=== PATIENT | male | born 1990 | race Native Hawaiian/Other Pacific Islander ===

== ENCOUNTER 2018-02-10 15:51 | Outpatient (CLI) | payer OTHER ==
[~2018-02-10] VITALS: Ht 182.9 cm; Wt 84.8 kg
[2018-02-10 16:14] VITALS: BP 133/84
[2018-02-10 16:17] LABS: BASOPHILS % (AUTO) 0 % (0-10); EOSINOPHILS # (AUTO) 0.1 10^3/uL (0.0-0.3); EOSINOPHILS % (AUTO) 1 % (0-10); HEMATOCRIT 42 % (40-54); HEMOGLOBIN 15.4 G/DL (13.3-17.7); LYMPHOCYTES # (AUTO) 1.3 X 10^3 (1.0-4.0); LYMPHOCYTES % (AUTO) 20 % (12-44); MEAN CORPUSCULAR HEMOGLOBIN 31 PG (25-34); MEAN CORPUSCULAR HGB CONC 36 G/DL (32-36); MEAN CORPUSCULAR VOLUME 86 FL (80-99); MEAN PLATELET VOLUME 10.8 FL (7.4-10.4); MONOCYTES # (AUTO) 0.5 X 10^3 (0.0-1.0); MONOCYTES % (AUTO) 8 % (0-12); NEUTROPHILS # (AUTO) 4.7 X 10^3 (1.8-7.8); NEUTROPHILS % (AUTO) 71 % (42-75); PLATELET COUNT 196 10^3/uL (130-400); RED BLOOD COUNT 4.91 10^6/uL (4.35-5.85); RED CELL DISTRIBUTION WIDTH 13.2 % (10.0-14.5); WHITE BLOOD COUNT 6.7 10^3/uL (4.3-11.0)
[2018-02-10 16:36] LABS: ALANINE AMINOTRANSFERASE 20 U/L (0-55); ALBUMIN 4.3 GM/DL (3.2-4.5); ALKALINE PHOSPHATASE 65 U/L (40-136); BILIRUBIN,DIRECT 0.3 MG/DL (0.0-0.3); BILIRUBIN,INDIRECT 0.6 MG/DL; BILIRUBIN,TOTAL 0.9 MG/DL (0.1-1.0); BUN/CREATININE RATIO 10; CALCIUM 9.3 MG/DL (8.5-10.1); CARBON DIOXIDE 24 MMOL/L (21-32); CHLORIDE 106 MMOL/L (98-107); CHOLESTEROL 169 MG/DL (< 200); CREATININE SERUM 0.89 MG/DL (0.60-1.30); GFR ESTIMATED > 60; GLUCOSE 119 MG/DL (70-105); HDL CHOLESTEROL 51 MG/DL (40-60); POTASSIUM 3.8 MMOL/L (3.6-5.0); SODIUM 138 MMOL/L (135-145); TOTAL PROTEIN 7.1 GM/DL (6.4-8.2); TRIGLYCERIDES 91 MG/DL (<150); VLDL CHOLESTEROL 18 MG/DL (5-40)
[2018-02-10 16:56] LABS: FREE T4 (FREE THYROXINE) 1.21 NG/DL (0.70-1.48)
== END 2018-02-10 16:15 | disposition home or self-care (01) ==
LOC: PREOP 15:51
PROVIDERS: ATTEND Urology
DX: Z01.812 Encounter for preprocedural laboratory examination (principal); Z11.2 Encounter for screening for other bacterial diseases; I86.1 Scrotal varices
CPT/HCPCS: 36415; 80048; 80061; 80076; 84402; 84403; 84439; 84443; 85025; 87081

== ENCOUNTER 2018-03-08 07:20 | Day surgery (SDC) | payer OTHER ==
[~2018-03-08] VITALS: Ht 182.9 cm; Wt 84.8 kg
--- NOTE | 2018-03-08 07:16 | Progress Note-Pre Operative ---
Pre-Operative Progress Note H&P Reviewed The H&P was reviewed, patient examined and no changes noted. Date Seen by Provider: Mar 08, 2018 Time Seen by Provider: 08:38 Date H&P Reviewed: Mar 08, 2018 Time H&P Reviewed: 08:38 Pre-Operative Diagnosis: GRADE 2 LT VARICOCELE KALYN BAXTER MD Mar 08, 2018 7:16 am
[2018-03-08 07:18] VITALS: BP 128/89
[2018-03-08] MEDS ORDERED: LACTATED RINGERS 1,000 ML IV PRN (07:28)
[2018-03-08] MEDS ORDERED: ceFAZolin INJECTION 1,000 MG in NS (IVPB) 50 ML IV ONE (07:30)
[2018-03-08] MEDS ORDERED: LIDOCAINE PF 2% 5 ML (XYLOCAINE) VIAL ONE (08:21)
[2018-03-08] MEDS ORDERED: fentaNYL INJECTION 100 MCG/2 ML AMP ONE ×2 (08:21→09:12)
[2018-03-08] MEDS ORDERED: proPOfol 200 MG/20 ML (DIPRIVAN) VIAL IV ONE (08:21)
[2018-03-08] MEDS ORDERED: MIDAZOLAM 2 MG/2 ML (VERSED) VIAL ONE (08:21)
[2018-03-08] MEDS ORDERED: DEXAMETHASONE 10 MG/ML (DECADRON) 1 ML VIAL ONE (08:21)
[2018-03-08] MEDS ORDERED: ONDANSETRON 4 MG/2 ML (SDV) Z0FRAN ONE (08:21)
[2018-03-08] MEDS ORDERED: SEVOFLURANE (ULTANE) 15 ML INHAL SOLN ONE ×3 (08:21→09:45)
[2018-03-08] MEDS ORDERED: GLYCOPYRROLATE 0.2 MG/ML (ROBINUL) 2 ML VIAL ONE (09:23)
--- NOTE | 2018-03-08 09:33 | Progress Note-Post Operative ---
Post-Operative Progess Note Surgeon (s)/Internist (s) Surgeon KALYN BAXTER MD Internist: LAURYN Pre-Operative Diagnosis GRADE 2 LT VARICOCELE Post-Operative Diagnosis SAME Procedure & Operative Findings Date of Procedure 03/08/18 Procedure Performed/Findings LT SPERMATIC VEIN LIGATION Anesthesia Type GENERAL Estimated Blood Loss Estimated blood loss (mL): NEGLIGIBLE Specimens/Packing Specimens Removed LT SPERMATIC VEINS Packing: NONE KALYN BAXTER MD Mar 08, 2018 9:33 am
--- NOTE | 2018-03-08 09:35 | Discharge Inst-Urology ---
Discharge Inst-Urology Discharge Medications New, Converted, or Re-newed RX: RX on Chart Patient Instructions/Follow Up Plan Please make appointment to been seen in office in 2 weeks. Rest till then Ice to Lt groin in RR and at home for 6hrs and then PRN Tomorrow may shower, no bath Keep bowels soft and moving Increase oral fluids for 48 hours and then as needed. Diet and Activity as tolerated. If questions or concerns contact your physician Or seek help at emergency department. KALYN BAXTER MD Mar 08, 2018 9:35 am
[2018-03-08] MEDS ORDERED: KETOROLAC 30 MG/ML VIAL ONE (09:46)
[2018-03-08] MEDS ORDERED: HYDROmorphone 2 MG/ML VIAL (DILAUDID) ONE (09:46)
[2018-03-08] MEDS ORDERED: KETOROLAC 30 MG/ML VIAL IVP ONE (10:00)
[2018-03-08] MEDS ORDERED: fentaNYL INJECTION 100 MCG/2 ML AMP IVP ONE (10:00)
[2018-03-08] MEDS ORDERED: MEPERIDINE (DEMEROL) INJ 50 MG/ML IVP ONE (10:00)
[2018-03-08] MEDS ORDERED: HYDROmorphone 2 MG/ML VIAL (DILAUDID) IV ONE (10:00)
[2018-03-08] MEDS ORDERED: ONDANSETRON 4 MG/2 ML (SDV) Z0FRAN IVP PRN (10:00)
[2018-03-08 10:30] VITALS: BP 131/97
--- NOTE | 2018-03-08 10:33 | Anesthesia-General Post-Op ---
General Patient Condition Mental Status/LOC: Same as Preop Cardiovascular: Satisfactory Nausea/Vomiting: Absent Respiratory: Satisfactory Pain: Controlled Complications: Absent Post Op Complications Complications None Follow Up Care/Instructions Patient Instructions None needed. Anesthesia/Patient Condition Patient Condition Patient is doing well, no complaints, stable vital signs, no apparent adverse anesthesia problems. No complications reported per nursing. CONNER ZARATE CRNA Mar 08, 2018 10:32
[2018-03-08] MEDS ORDERED: HYDROcodone/APAP 5 MG/325 MG (LORTAB) TAB ONE (10:41)
[2018-03-08] MEDS ORDERED: HYDROcodone/APAP 5 MG/325 MG (LORTAB) TAB PO PRN (10:45)
[2018-03-08 11:00] VITALS: BP 141/80
[2018-03-08] MEDS ORDERED: CEPH-507 PO (11:22)
[2018-03-08] MEDS ORDERED: HYDR-3870 PO (11:22)
[2018-03-08 12:00] VITALS: BP 121/69
[2018-03-08 14:28] VITALS: BP 121/69
--- NOTE | 2018-03-08 16:57 | OPERATIVE REPORT ---
DATE OF SERVICE: 03/08/2018 PREOPERATIVE DIAGNOSIS: Grade II left symptomatic varicocele. POSTOPERATIVE DIAGNOSIS: Grade II left symptomatic varicocele. OPERATION PERFORMED: Left spermatic vein ligation. SURGEON: Natan Baxter MD MOTORBOAT MECHANIC HELPER: Elie Cunha DO ANESTHESIA: General. COMPLICATIONS: None. DESCRIPTION OF PROCEDURE: Under satisfactory general anesthesia, the patient in supine position, genitalia abdomen and thigh were prepped and draped in the usual sterile fashion. A left inguinal incision was made, carried through skin, subcutaneous tissue and fascia. The spermatic cord was identified. A vessel loop passed around it all the way up to the left internal inguinal ring. There was a good dilated large spermatic vein. It was dissected freely and a good portion of it was excised. The ends were ligated with 2-0 silk ligatures. Another small one was closer to the vas. It was dissected away from the vas, preserving the vas at all time and dealt with similarly. There was no more dilated veins. Everything else was safe and intact. There were no inguinal floor veins. Spermatic cord was replaced in its place and then the closure was performed in layers. The external oblique with interrupted 2-0 silk, the fascia with interrupted 3-0 plain and the skin with running 4-0 subcuticular suture. Steri-Strips and Op-Site dressing was applied. Needle, sponge and instruments correct x2. Estimated blood loss negligible. The patient tolerated the procedure and anesthesia well and was sent to recovery room in stable condition. Job ID: [id number] DocumentID: [id number] Dictated Date: 03/08/2018 09:38:27 Machine Design Engineer Date: 03/08/2018 16:56:19 Dictated By: NATAN BAXTER MD [facility]
== END 2018-03-08 14:28 | disposition home or self-care (01) ==
LOC: SDC 07:20
PROVIDERS: ATTEND Urology
DX: I86.1 Scrotal varices (principal); F17.210 Nicotine dependence, cigarettes, uncomplicated
CPT/HCPCS: 88304